=== PATIENT | male | born 1985 | race African-American/Black ===

== ENCOUNTER 2016-07-21 13:39 | Outpatient (CLI) | payer OTHER | END 2016-07-21 14:45 | disposition home or self-care (01) | LOC: RAD 13:39 | DX: M25.562 Pain in left knee (principal) ==

== ENCOUNTER 2016-07-24 08:10 | Outpatient (CLI) | payer OTHER | END 2016-07-24 10:00 | disposition home or self-care (01) | LOC: MRI 08:10 | DX: M54.5 Low back pain (principal) ==